=== PATIENT | female | born 2000 ===

== ENCOUNTER 2022-10-12 19:46 | Emergency (ER) | payer OTHER, BC ==
[2022-10-12] MEDS ORDERED: Ibuprofen 200 MG TAB ONE (22:39)
== END 2022-10-13 00:26 | disposition home or self-care (01) ==
LOC: CSHERS 19:46
DX: S62.317A Displaced fracture of base of fifth metacarpal bone, left hand, initial encounter for closed fracture (principal); S00.03XA Contusion of scalp, initial encounter; V89.2XXA Person injured in unspecified motor-vehicle accident, traffic, initial encounter
CPT/HCPCS: 29125; 70450